=== PATIENT | female | born 1985 | race Caucasian/White ===

== ENCOUNTER 2018-11-09 20:56 | Emergency (ER) | payer BC ==
[~2018-11-09] VITALS: Ht 157.5 cm; Wt 77.1 kg
== END 2018-11-09 21:35 | disposition home or self-care (01) ==
LOC: ER 20:56
DX: S16.1XXA Strain of muscle, fascia and tendon at neck level, initial encounter (principal); V53.5XXA Driver of pick-up truck or van injured in collision with car, pick-up truck or van in traffic accident, initial encounter; Y92.410 Unspecified street and highway as the place of occurrence of the external cause
CPT/HCPCS: 99282